=== PATIENT | female | born 1960 | race Caucasian/White ===

== ENCOUNTER 2018-02-02 11:36 | Emergency (ER) | payer BC ==
--- NOTE | 2018-02-02 14:07 | RAD ---
Indication: RIGHT facial droop noticed last night. Comparison: No relevant prior exams available on the [facility] PACS for comparison. Technique: Noncontrast CT vertex of skull through foramen magnum. Report: The sulci, ventricles, and basal cisterns are normal for age. [place] matter white matter differentiation is preserved without evidence for edema. No intra or extra axial hemorrhage, mass, or fluid collection detected. Unremarkable visualized orbital contents. Unremarkable calvarium and skull base. Unremarkable scalp. The visualized paranasal sinuses and mastoid air spaces are clear. IMPRESSION: #. Negative unenhanced head CT.
[2018-02-02 14:24] LABS: ABS Basophils 0 10^3/ul (0-0.2); ABS Eosinophils 0.2 10^3/ul (0-0.6); ABS Lymphocytes 2.2 10^3/ul (1.0-4.8); ABS Monocytes 0.5 10^3/ul (0-0.8); ABS Neutrophils 4.7 10^3/ul (1.5-7.7); ABS Nucleated RBC 0 10^3/ul; Eosinophil % 2.7 % (0-6); Hematocrit 39 % (35-47); Hemoglobin 12.8 g/dl (12.0-16.0); Lymphocyte % 29.3 % (25-47); Mean Corpuscular HGB Conc 33 g/dl (31-36); Mean Corpuscular Hemoglobin 29 pg (27-31); Mean Corpuscular Volume 88 fL (80-97); Mean Platelet Volume 9.2 um3 (7.4-10.4); Nucleated Red Blood Cells % 0; Platelet Count 284 10^3/ul (150-450); Red Cell Distribution Width 15 % (10.5-15); White Blood Count 7.6 10^3/ul (3.5-10.8)
[2018-02-02 14:38] LABS: INR 0.9 (0.77-1.02)
[2018-02-02 14:57] LABS: EGFR Non-African American 72.9 (>60)
[2018-02-02] MEDS ORDERED: Iohexol 350* (CONTRAST) 500 ML MDV IV ONE (15:47)
--- NOTE | 2018-02-02 16:39 | RAD ---
INDICATION: RIGHT facial droop. COMPARISON: February 02, [address] TECHNIQUE: Multidetector CT images were obtained from the aortic arch to the vertex of the head with 80 mL Omnipaque 350 IV contrast. Arterial phase of enhancement. Multiplanar reformation including maximum intensity projection. 3-D arterial volume rendering. Stenosis estimations based on denominator of distal arterial diameter. NECK ANGIOGRAM REPORT: Normal configuration of the branch vessels at the aortic arch. Negative for ostial stenosis. No atherosclerotic plaque evident at the RIGHT common or internal carotid arteries. Tortuous RIGHT internal carotid artery. Tortuous LEFT common and internal carotid arteries. Minimal calcific plaque at the proximal LEFT internal carotid artery without resulting stenosis based on NASCET criteria. Patent dominant LEFT and mildly smaller RIGHT vertebral arteries with both contributing to the basilar artery. Negative for arterial dissection. Small bone island at the LEFT fifth vertebral body articular mass without concern. No suspicious focal osseous lesions evident. NECK ANGIOGRAM IMPRESSION: Negative for carotid or vertebral artery stenosis or occlusion. HEAD ANGIOGRAM REPORT: Motion artifact degrades image quality. Minimal calcific plaque at the bilateral carotid siphons without suggestion of significant resulting stenosis. Unremarkable supraclinoid internal carotid arteries as well as the M1 and M2 segments of the middle cerebral arteries and the A1 and A2 segments of the anterior cerebral arteries. No definitive anterior communicating artery visualized. Unremarkable cerebellar artery origins and basilar artery. Patent posterior cerebral arteries are supplied primarily or entirely by the posterior circulation with normal variant hypoplastic posterior indicating arteries. No intracranial aneurysms or vascular malformations evident. Normal opacification of the dural venous sinuses without evidence for thrombosis. HEAD ANGIOGRAM IMPRESSION: No central intracranial large vessel arterial occlusion or hemodynamically significant stenosis visualized. CPT II: CPT II Codes: 3100F
--- NOTE | 2018-02-02 17:30 | ED ---
Neurological HPI - HPI Summary HPI Summary: Patient is a 57 y/o F w/ c/o right eyebrow droop and right mouth droop. Right eyebrow droop was noticed by patient's friend, right mouth droop by patient's children. Sx are reported to have onset yesterday. She also reports slight ENGLISH and left ear ache. PMHx of anxiety. She denies fever, chills, sore throat, blurred vision, double vision, neck pain, CP, SOB, ABD pain, back pain, dysuria , hematuria, blood in the stool, edema, bruising, rashes, and depression. On triage, pain is denied, nothing is noted to aggravate/alleviate Sx. Home medications and allergies are reviewed. - History of Current Complaint Chief Complaint: EDNeurologicalDeficit Stated Complaint: STROKE LIKE SYMPTOMS Hx Obtained From: Patient Onset/Duration: Started days ago - yesterday, Still Present Timing: Constant Current Severity: None - 0/10 on triage but in room patient reports ENGILSH Neurological Deficit Location: Facial - right eyebrow, right mouth droop Pain Intensity: 0 Pain Scale Used: 0-10 Numeric - 0/10 on triage but in room patient reports ENGLISH Character: Other: - right eyebrow/mouth droop Aggravating: Nothing Alleviating: Nothing Associated Signs and Symptoms: Positive: Headache, Anxiety - PMHx. Negative: Fever, Neck Pain/Stiffness, Chest Pain, Shortness of Breath, Depression - Allergy/Home Medications Allergies/Adverse Reactions: Allergies Allergy/AdvReac Type Severity Reaction Status Date / Time MS Penicillins [Penicillins] Allergy Intermediate Rash Verified 10/06/14 06:57 MS Erythromycin AdvReac Intermediate GI Upset Verified 10/06/14 06:57 [Erythromycin] Home Medications: Home Medications Ranitidine TAB (NF) [Zantac TAB (NF)] 150 mg PO BID PRN 02/02/18 [History Confirmed 02/02/18] PMH/Surg Hx/FS Hx/Imm Hx Endocrine/Hematology History: Denies: Hx Diabetes, Hx Thyroid Disease Cardiovascular History: Denies: Hx Hypertension Respiratory History: Denies: Hx Asthma, Hx Chronic Obstructive Pulmonary Disease (COPD) GI History: Denies: Hx Ulcer Musculoskeletal History: Reports: Hx Bursitis - OCCASIONAL IN LEFT HIP, Hx Tendonitis - HX OF BILATERAL ARMS Sensory History: Denies: Hx Contacts or Glasses, Hx Hearing Aid Opthamlomology History: Denies: Hx Contacts or Glasses Psychiatric History: Reports: Hx Anxiety - NO MEDS - Cancer History Hx Chemotherapy: No Hx Radiation Therapy: No - Surgical History Surgery Procedure, Year, and Place: tonsils and addenoids. hysterectomy Hx Anesthesia Reactions: Yes - NAUSEA AND VOMITING Infectious Disease History: No Infectious Disease History: Reports: Hx Shingles Denies: Hx Hepatitis, Hx Human Immunodeficiency Virus (HIV), Traveled Outside the US in Last 30 Days - Family History Known Family History: Negative: Blood Disorder - Social History Alcohol Use: Weekly Substance Use Type: Reports: None Smoking Status (MU): Never Smoked Tobacco Review of Systems Negative: Fever, Chills Positive: Other - NEGATIVE: double vision . Negative: Blurred Vision Positive: Ear Ache - left ear ache . Negative: Sore Throat Negative: Chest Pain Negative: Shortness Of Breath Negative: Abdominal Pain Positive: other - NEGATIVE: blood in stool . Negative: dysuria, hematuria Positive: Other - NEGATIVE: back/neck pain . Negative: Edema Negative: Rash, Bruising Neurological: Other - right eyebrow/mouth droop Positive: Headache Negative: Depressed All Other Systems Reviewed And Are Negative: No Physical Exam - Summary Physical Exam Summary: Appearance: Alert, conversive, nontoxic appearing Skin: Warm, dry, no mottling, no rashes, no contusions HEENT: EOMI, PERRL, moist mucous membranes Neck: No masses on the neck, supple Respiratory: Clear to auscultation, breath sounds present, no rales, no rhonchi , no wheezes Cardiovascular: RRR, pulses are symmetrical in both lower and upper extremities Abdomen: Soft, non-tender Bowel Sounds: Present Musculoskeletal: No CVA tenderness, no obvious deformity, moving all extremities in a grossly normal manner Neurological: A&Ox3, CN II-XII Intact, moving all extremities symmetrically; right eyebrow is slightly depressed compared to left. Smile is symmetric. NIH 0 , GCS 15. Psychiatric: Normal affect and mood Triage Information Reviewed: Yes Vital Signs On Initial Exam: Initial Vitals Temp Pulse Resp BP Pulse Ox 98.0 F 89 16 161/83 98 02/02/18 11:38 02/02/18 11:38 02/02/18 11:38 02/02/18 11:38 02/02/18 11:38 Vital Signs Reviewed: Yes Diagnostics - Vital Signs Vital Signs Temp Pulse Resp BP Pulse Ox 02/02/18 15:12 74 18 137/82 98 02/02/18 15:00 73 22 94 02/02/18 14:00 75 19 97 02/02/18 13:00 74 16 93 02/02/18 12:02 74 9 95 02/02/18 11:38 98.0 F 89 16 161/83 98 - Laboratory Lab Results: Lab Results 02/02/18 02/02/18 02/02/18 Range/Units 14:06 14:06 14:06 WBC 7.6 (3.5-10.8) 10^3/ul RBC 4.40 (4.00-5.40) 10^6/ul Hgb 12.8 (12.0-16.0) g/dl Hct 39 (35-47) % MCV 88 (80-97) fL MCH 29 (27-31) pg MCHC 33 (31-36) g/dl RDW 15 (10.5-15) % Plt Count 284 (150-450) 10^3/ul MPV 9.2 (7.4-10.4) um3 Neut % (Auto) 60.9 (38-83) % Lymph % (Auto) 29.3 (25-47) % [place] % (Auto) 6.6 (0-7) % Eos % (Auto) 2.7 (0-6) % Baso % (Auto) 0.5 (0-2) % Absolute Neuts (auto) 4.7 (1.5-7.7) 10^3/ul Absolute Lymphs (auto) 2.2 (1.0-4.8) 10^3/ul Absolute Monos (auto) 0.5 (0-0.8) 10^3/ul Absolute Eos (auto) 0.2 (0-0.6) 10^3/ul Absolute Basos (auto) 0 (0-0.2) 10^3/ul Absolute Nucleated RBC 0 10^3/ul Nucleated RBC % 0 INR (Anticoag Therapy) 0.90 (0.77-1.02) APTT 29.9 (26.0-36.3) seconds Sodium 140 (135-145) mmol/L Potassium 4.2 (3.5-5.0) mmol/L Chloride 107 (101-111) mmol/L Carbon Dioxide 27 (22-32) mmol/L Anion Gap 6 (2-11) mmol/L BUN 15 (6-24) mg/dL Creatinine 0.81 (0.51-0.95) mg/dL Est GFR ( Amer) 88.2 (>60) Est GFR (Non-Af Amer) 72.9 (>60) BUN/Creatinine Ratio 18.5 (8-20) Glucose 104 H (70-100) mg/dL Calcium 9.2 (8.6-10.3) mg/dL Total Bilirubin 0.30 (0.2-1.0) mg/dL AST 15 (13-39) U/L ALT 17 (7-52) U/L Alkaline Phosphatase 66 (34-104) U/L Total Protein 6.2 L (6.4-8.9) g/dL Albumin 3.8 (3.2-5.2) g/dL Globulin 2.4 (2-4) g/dL Albumin/Globulin Ratio 1.6 (1-3) Result Diagrams: 02/02/18 14:06 02/02/18 14:06 Lab Statement: Any lab studies that have been ordered have been reviewed, and results considered in the medical decision making process. - CT CTA Head/neck CT Interpretation Completed By: Radiologist Summary of CT Findings: HEAD ANGIOGRAM IMPRESSION: No central intracranial large vessel arterial occlusion or. hemodynamically significant stenosis visualized. This report was reviewed by ED physician. brain ct CT Interpretation Completed By: Radiologist Summary of CT Findings: IMPRESSION: #. Negative unenhanced head CT. This report was reviewed by ED physician. - EKG 1539 Cardiac Rate: NL - rate of 68 BPM EKG Rhythm: Sinus Rhythm Summary of EKG Findings: normal QRS, normal QTc, normal axis, normal ST/T wave NIH Scale - NIH Scale Level of Consciousness: Alert/Keenly Responsive Ask Patient the Month and His/Her Age: Both Correct Ask Pt to Open/Close Eyes and Tank Carpenter/Release Non-Paretic Hand: Both Correctly Best Gaze (Only Horizontal Eye Movement): Normal Visual Field Testing: No Visual Loss Facial Paresis-Pt to Smile & Close Eyes or Grimace Symmetry: Normal/Symmetrical Motor Function - Right Arm: No Drift-Holds 10 Seconds Motor Function - Left Arm: No Drift-Holds 10 Seconds Motor Function - Right Leg: No Drift-Holds 10 Seconds Motor Function - Left Leg: No Drift-Holds 10 Seconds Limb Ataxia-Must be out of Proportion to Weakness Present: Absent Sensory (Use Pinprick to Test Arms/Legs/Trunk/Face): Normal Best Language (Describe Picture, Name Items): No Aphasia Dysarthria (Read Several Words): Normal Extinction and Inattention: No Abnormality Total Score: 0 Re-Evaluation - Re-Evaluation First Eval Re-Evaluation Time: 17:30 Comment: Discussed results of labs and tests as well as neuro consult with patient. She will be discharged to home and follow up with PCP and neurologist. Patient is agreeable. Course/Dx - Course Course Of Treatment: bright is a 57 y/o F w/ c/o right eyebrow droop and right mouth droop. Right eyebrow droop was noticed by patient's friend, right mouth droop by patient's children. Sx are reported to have onset yesterday. She also reports slight ENGLISH and left ear ache. PMHx of anxiety. On physical exam, right eyebrow is slightly depressed compared to left. Smile is symmetric. NIH 0, GCS 15. Labs were unremarkable. HEAD ANGIOGRAM IMPRESSION: No central intracranial large vessel arterial occlusion or. hemodynamically significant stenosis visualized. IMPRESSION: #. Negative unenhanced head CT. EKG showed sinus rhythm with rate of 68 BPM and normal QRS, normal QTc, normal axis, normal ST/T wave. 1721 - Patient's case was discussed with Dr. Rossi, differential was myasthenia gravis, low chance of stroke or aneurysm, dominguez's palsy. Dr. Rossi states that patient can be discharged to home and follow up with neurologist. Discussed results of labs and tests as well as neuro consult with patient. She will be discharged to home and follow up with PCP and neurologist. Patient is agreeable. Dx of facial asymmetry. - Diagnoses Provider Diagnoses: Facial asymmetry - Physician Notifications Discussed Care Of Patient With: Eren Rossi Time Discussed With Above Provider: 17:21 Instructed by Provider To: Other - 1721 - Patient's case was discussed with Dr. Rossi, differintial was myasthenia gravis, low chance of stroke or aneurysm, dominguez's palsy. Dr. Rossi states that patient can be discharged to home and follow up with neurologist. Discharge - Sign-Out/Discharge Documenting (check all that apply): Patient Departure - discharge - Discharge Plan Condition: Stable Disposition: HOME Prescriptions: predniSONE [Deltasone 20 MG TAB] 40 mg PO DAILY #14 tablet MDD 2 Patient Education Materials: Dominguez Palsy (ED) Referrals: [facility] [Provider Group] John Bonilla MD [Primary Care Provider] - Additional Instructions: Take the prednisone as instructed. return if worse or any new symptoms. It is important to follow up with [email or web address] primary care physician. Please also follow up with neurology. I have given you their contact information. Call tomorrow for a followup appt this week. - Billing Disposition and Condition Condition: STABLE Disposition: Home - Attestation Statements Document Initiated by Rachnaibkirt: Yes Documenting Scribe: Tim Guillory Provider For Whom Shant is Documenting (Include Credential): Rachel Cartwright MD Scribe Attestation: I, Tim Guillory , scribed for Rachel Cartwright MD on 02/05/18 at 1753. Scribe Documentation Reviewed: Yes Provider Attestation: The documentation as recorded by the Tim person accurately reflects the service I personally performed and the decisions made by me, Rachel Cartwright MD
[2018-02-02 17:37] VITALS: BP 127/90
== END 2018-02-02 17:58 | disposition home or self-care (01) ==
LOC: ED 11:36
DX: R29.810 Facial weakness (principal); H57.811 Brow ptosis, right; H92.02 Otalgia, left ear; R51 Headache; F41.9 Anxiety disorder, unspecified; Z88.1 Allergy status to other antibiotic agents; Z88.0 Allergy status to penicillin
CPT/HCPCS: 36415; 70450; 70496; 70498; 80053; 85025; 85610; 85730; 93005; 99283; Q9967

== ENCOUNTER 2019-04-14 08:05 | Emergency (ER) | payer BC ==
--- OUTSIDE RECORDS SUMMARY | 2019-04-14 08:26 | XMS REPORT | Continuity of Care Document ---
:1960 External Reference #:[id number] Author Name Flaquita ArgeliaLAYLA ruthP-Cde (transmitted by agent of provider Giselle Enamorado) Address [address] [place] [address] Problems Description No Information Available Social History Type Date Description Comments Sex Unknown Tobacco Use Start: Unknown Never Smoked Cigarettes Smoking Status Reviewed: 02/15/19 Never Smoked Cigarettes ETOH Use Occasionally consumes alcohol Tobacco Use Start: Unknown Patient has never smoked Recreational Drug Use Denies Drug Use Exercise Type/Frequency Does not exercise Allergies, Adverse Reactions, Alerts Active Allergies Reaction Severity Comments Date Penicillin 02/24/2014 Erythromycin 02/24/2014 Medications Active Medications SIG Qnty Indications Ordering Provider Date Ranitidine HCL Take 1 Tablet By Unknown 150mg Mouth Two Times Tablets Daily Metronidazole As directed.. Cesilia, 0.75% Cream MD Yamile Epinastine HCL Instill 1 Drop In Unknown 0.05% Each Eye Two Solution Times Daily [place] 3 500 take one Unknown 500mg Capsules capsule/tablet daily by mouth Immunizations Description No Information Available Vital Signs Date Vital Result Comment 02/15/2019 11:29am Height 62 inches 5'2" Weight 238.00 lb Heart Rate 48 /min BP Systolic 140 mmHg BP Diastolic 84 mmHg O2 % BldC Oximetry 96 % BMI (Body Mass Index) 43.5 kg/m2 Last Menstrual Period [id number] 02/12/2018 9:03am Height 62 inches 5'2" Weight 239.00 lb Heart Rate 82 /min BP Systolic 124 mmHg BP Diastolic 82 mmHg O2 % BldC Oximetry 98 % BMI (Body Mass Index) 43.7 kg/m2 Last Menstrual Period [id number] Results Description No Information Available Procedures Date Code Description Status 02/12/2019 [id number] Mammogram Completed 02/10/2018 [id number] Mammogram Completed 01/21/2017 [id number] Mammogram Completed Medical Devices Description No Information Available Encounters Description No Information Available Assessments Date Code Description Provider 02/15/2019 Z01.419 Encounter for gynecological examination Lionel Torres (general) (routine) Plan of Treatment 02/15/2019 - aMnuel [id number] Encounter for gynecological examination (general) (routine)Comments:1. For bone health, the recommended amount of calcium is 1200 mg/day. You might benefit from a supplement such as Citracal Petites to make this requirement2. Including a strength training component in your exercise routine is also important for maintaining bone health and muscle strength. 3. Remember to do your Kegals (vaginal strength training)!! Functional Status Description No Information Available Mental Status Description No Information Available Referrals Description No Information Available
[2019-04-14] MEDS ORDERED: Ondansetron ODT TAB* 4 MG SL PRN (08:49)
--- NOTE | 2019-04-14 08:49 | ED ---
Head Injury - HPI Summary HPI Summary: 59-year-old female with no significant past medical history presents to the emergency department today after slipping on ice and hitting the back of her head on concrete 1 hour ago and now is complaining of a 2 out of 10 constant occipital headache with associated nausea but no vomiting. Patient has no loss consciousness and remembers the entire event. Patient has no neck pain and full range of motion. Patient is not on anticoagulation and has no bleeding disorders. Patient has no history of brain bleeds or polycystic kidney disease nor family history of this. Patient has no other complaints at this time including fever, chest pain, abdominal pain, shortness of breath, rash, pain with urination, back pain. Family history and surgical history noncontributory. - History Of Current Complaint Chief Complaint: EDFall Stated Complaint: HEAD INJURY PER PT Time Seen by Provider: 04/14/19 08:39 Hx Obtained From: Patient Mechanism Of Injury: Fall From Height Of: - standing Onset/Duration: Started Hours Ago Onset of Pain: Immediate Severity Currently: Mild Severity Initially: Mild Pain Intensity: 3 Pain Scale Used: 0-10 Numeric Location of Head Injury: Occipital Character: Throbbing Associated Signs And Symptoms: Nausea, Swelling, Headache - Allergies/Home Medications Allergies/Adverse Reactions: Allergies Allergy/AdvReac Type Severity Reaction Status Date / Time erythromycin base Allergy GI Upset Verified 04/14/19 08:38 Penicillins Allergy Rash Verified 04/14/19 08:38 Home Medications: Home Medications NK [No Home Medications Reported] 04/14/19 [History Confirmed 04/14/19] PMH/Surg Hx/FS Hx/Imm Hx Endocrine/Hematology History: Denies: Hx Diabetes, Hx Thyroid Disease Cardiovascular History: Denies: Hx Hypertension, Hx Pacemaker/ICD Respiratory History: Denies: Hx Asthma, Hx Chronic Obstructive Pulmonary Disease (COPD) GI History: Denies: Hx Ulcer History: Denies: Hx Renal Disease Musculoskeletal History: Reports: Hx Bursitis - OCCASIONAL IN LEFT HIP, Hx Tendonitis - HX OF BILATERAL ARMS Sensory History: Denies: Hx Contacts or Glasses, Hx Hearing Aid Opthamlomology History: Denies: Hx Contacts or Glasses Psychiatric History: Reports: Hx Anxiety - NO MEDS Denies: Hx Panic Disorder - Cancer History Hx Chemotherapy: No Hx Radiation Therapy: No - Surgical History Surgery Procedure, Year, and Place: tonsils and addenoids. hysterectomy. BREAST REDUCTION. RIGHT ARM ULNAR NERVE/CARPAL TUNNEL RIGHT WRIST Hx Anesthesia Reactions: Yes - NAUSEA AND VOMITING Infectious Disease History: No Infectious Disease History: Reports: Hx Shingles Denies: Hx Hepatitis, Hx Human Immunodeficiency Virus (HIV), Traveled Outside the US in Last 30 Days - Family History Known Family History: Negative: Blood Disorder - Social History Alcohol Use: Weekly Substance Use Type: Reports: None Smoking Status (MU): Never Smoked Tobacco Review of Systems Constitutional: Negative Eyes: Negative ENT: Negative Cardiovascular: Negative Respiratory: Negative Gastrointestinal: Negative Genitourinary: Negative Positive: Arthralgia, Myalgia Skin: Negative Neurological: Negative Psychological: Normal All Other Systems Reviewed And Are Negative: Yes Physical Exam - Summary Physical Exam Summary: Patient has no neurological deficits and is in no acute distress. PERRLA, EOMI , no neck pain, no evidence of gross trauma. There is a moderately sized hematoma on the occipital portion of the scalp. No evidence of laceration. Triage Information Reviewed: Yes Vital Signs On Initial Exam: Initial Vitals Temp Pulse Resp BP Pulse Ox 98.3 F 75 16 169/85 97 04/14/19 08:16 04/14/19 08:16 04/14/19 08:16 04/14/19 08:16 04/14/19 08:16 Vital Signs Reviewed: Yes Appearance: Positive: Well-Appearing, No Pain Distress, Well-Nourished Skin: Positive: Warm, Skin Color Reflects Adequate Perfusion Eyes: Positive: EOMI, YANA ENT: Positive: Hearing grossly normal Respiratory/Lung Sounds: Positive: Clear to Auscultation, Breath Sounds Present Cardiovascular: Positive: RRR, S1, S2 Bowel Sounds: Positive: Present Musculoskeletal: Positive: Strength/ROM Intact Neurological: Positive: Sensory/Motor Intact, Alert, Oriented to Person Place, Time, Facial Symmetry, Speech Normal Psychiatric: Positive: Normal, Affect/Mood Appropriate AVPU Assessment: Alert Procedures - Sedation Patient Received Moderate/Deep Sedation with Procedure: No Diagnostics - Vital Signs Vital Signs Temp Pulse Resp BP Pulse Ox 04/14/19 08:16 98.3 F 75 16 169/85 97 - Laboratory Lab Statement: Any lab studies that have been ordered have been reviewed, and results considered in the medical decision making process. Head Injury Course/Dx Course Of Treatment: Patient was evaluated in the emergency department today status post fall. Patient seen and examined her vitals are stable and she is afebrile. Patient had no neurological deficits was no acute distress. CT imaging of the brain and cervical spine resulted as negative for intracranial bleed or fracture. Patient appeared to have sustained no significant trauma from her fall and follow-up with her primary care provider in 7 days. Patient discharged with likely concussion and was told to take Tylenol as needed for pain and return to activities tolerated. - Diagnoses Differential Diagnosis/HQI/PQRI: Cerebral Contusion, Cervical Sprain, Concussion Without LOC, Contusion, Hematoma, Intracranial Bleed, Laceration, Skull Fracture Provider Diagnoses: Fall, Hematoma of scalp Discharge ED - Sign-Out/Discharge Documenting (check all that apply): Patient Departure - Discharge Plan Condition: Stable Disposition: HOME Patient Education Materials: Concussion (ED) Referrals: John Bonilla MD [Primary Care Provider] - 5 Days Additional Instructions: You were seen in the emergency department today due to a fall. Imaging was done and showed no evidence of intracranial bleed or fracture of your neck. It appears you sustained no significant trauma from your fall. You may take Tylenol 650 mg every 6 hours as needed for pain. Please follow up with your primary care provider in 7 days for further evaluation and management. Please return to the emergency department immediately if you develop any new or worsening symptoms. - Billing Disposition and Condition Condition: STABLE Disposition: Home
[2019-04-14] MEDS ORDERED: Acetaminophen TAB* 325 MG PO ONE (10:42)
[2019-04-14 10:56] VITALS: BP 141/72
== END 2019-04-14 10:53 | disposition home or self-care (01) ==
LOC: ED 08:05
DX: S00.03XA Contusion of scalp, initial encounter (principal); W00.0XXA Fall on same level due to ice and snow, initial encounter; Y92.9 Unspecified place or not applicable; F41.9 Anxiety disorder, unspecified; Z90.710 Acquired absence of both cervix and uterus; Z88.0 Allergy status to penicillin; Z88.1 Allergy status to other antibiotic agents
CPT/HCPCS: 70450; 72125; 99282; A9270-GY